=== PATIENT | female | born 1990 | race Caucasian/White ===

== ENCOUNTER 2017-11-30 21:54 | Observation (INO) ==
[2017-11-30 22:22] LABS: Bilirubin,Urine Negative (Negative); Blood,Urine Negative (Negative); Clarity,Urine Clear (Clear); Color,Urine Yellow (Yellow); Glucose,Urine (UA) Normal (Normal); Ketones,Urine Negative (Negative); Leukocyte Esterase,Urine Negative (Negative); Nitrite,Urine Negative (Negative); PH,Urine 6.5 pH Units (5.0-8.0); Protein,Urine Negative (Neg-Trace); Specific Gravity,Urine 1.014 (1.010-1.025); Urobilinogen,Urine Normal (Normal)
[2017-11-30 22:37] LABS: Amphetamine Screen,Urine Negative ng/mL (Cutoff=1000); Barbiturate Screen,Urine Negative ng/mL (Cutoff=200); Benzodiazepines Screen,Urine Negative ng/mL (Cutoff=200); Cannabinoid Screen,Urine Negative ng/mL (Cutoff = 50); Cocaine Screen,Urine Negative ng/mL (Cutoff= 300); Opiate Screen,Urine Negative ng/mL (Cutoff=300); Phencyclidine Screen,Urine Negative ng/mL (Cutoff=25)
[2017-11-30] MEDS ORDERED: FLUARIX QUAD 2017-18 36MOS UP/PF 0.5 ML SYRINGE IM ONE (22:55)
--- NOTE | 2017-11-30 23:29 | OB/GYN Progress Note ---
Date of Encounter: 11/30/17 Time of Encounter: 23:24 - Assessment and Plan (1) Back pain affecting in second trimester Current Visit: Yes Status: Acute Urinalysis - normal NST - reactive SSE - white discharge; sent to lab for vaginosis panel Vaginosis panel - pending Anticipate discharge home with labor precautions Discussed common discomforts of and how to relieve them. Encouraged to use maternity support belt and to seek foster care therapist. Discussed potential for physical therapy if desired. Follow up in office with routine care and PRN. (2) 26 weeks gestation of Current Visit: Yes Status: Acute Subjective - Subjective Principal diagnosis: Lower Back Pain Interval history: Ms Baez is a at 26 weeks 5 days that presents to triage with c/o pelvic pressure and lower back pain for the past several days. She states she was treated for a vaginal infection and yeast infection at the end of October. She denies leaking of fluid, vaginal bleeding, contractions, cramping, headaches, vision changes, and epigastric pain. She states she attempted to have intercourse last night, but it was too uncomfortable. She states she is working on fixing up her house and has been carrying around her 28 pound child frequently. Antepartum ROS: movement normal, other (pelvic pressure, lower back pain) , no loss of fluid, no vaginal bleeding, no contractions Objective - Vital Signs Vital Signs: Intake and Output 11/30/17 11/30/17 11/30/17 07:59 15:59 23:59 Other: Weight 94.9 kg Patient Weight 11/30/17 23:59 Weight 94.9 kg - Exam FHR: auscultation normal, category 1 (155 moderate variability) Auscultation: bilateral: normal Abdomen: Present: normal appearance, soft, gravid Uterus: Present: normal. Absent: firm, tenderness Cervical dilation: FT Cervix effacement: Thick station: unable to palpate presenting part/ high
[2017-12-01 00:31] LABS: Candida DNA Not Detected (Not Detect); Gardnerella DNA Not Detected (Not Detect); Trichomonas DNA Not Detected (Not Detect)
== END 2017-12-01 00:57 | disposition home or self-care (01) ==
LOC: 1NENULAB
PROVIDERS: ADMIT Obstetrics & Gynecology; ATTEND Obstetrics & Gynecology

== ENCOUNTER 2018-01-22 21:49 | Observation (INO) ==
[2018-01-22 22:20] LABS: Bilirubin,Urine Negative (Negative); Blood,Urine Negative (Negative); Clarity,Urine Clear (Clear); Color,Urine Yellow (Yellow); Glucose,Urine (UA) Normal (Normal); Ketones,Urine Negative (Negative); Leukocyte Esterase,Urine Small (Negative); Nitrite,Urine Negative (Negative); Protein,Urine Negative (Neg-Trace); Specific Gravity,Urine 1.021 (1.010-1.025); Urobilinogen,Urine Normal (Normal)
[2018-01-22 22:23] LABS: Bacteria,Urine Few per hpf (None-Few); Hyaline Casts,Urine None Seen per lpf (None-Few); RBC,Urine 0-3 per hpf (0-3); Squamous Epithelial Cell,Urine Many per lpf (None-Few)
[2018-01-22 22:40] LABS: Amphetamine Screen,Urine Negative ng/mL (Cutoff=1000); Barbiturate Screen,Urine Negative ng/mL (Cutoff=200); Benzodiazepines Screen,Urine Negative ng/mL (Cutoff=200); Cannabinoid Screen,Urine Negative ng/mL (Cutoff = 50); Cocaine Screen,Urine Negative ng/mL (Cutoff= 300); Opiate Screen,Urine Negative ng/mL (Cutoff=300); Phencyclidine Screen,Urine Negative ng/mL (Cutoff=25)
--- NOTE | 2018-01-23 07:02 | OB/GYN Progress Note ---
Date of Encounter: 01/22/18 Time of Encounter: 23:00 - Assessment and Plan (1) 34 weeks gestation of Status: Acute Ms Peoples c/o pain in her lower back and contractions. No history of PTL. States positive movement. She denies headaches, vision changes, epigastric pain, vaginal bleeding, and vaginal leaking of fluid. NST reactive; no contractions per monitor Urine contaminated Discharge home with PTL precautions Follow up in office as scheduled and PRN. Subjective - Subjective Antepartum ROS: new complaints (cramping), movement normal, no vaginal bleeding Objective - Labs Labs: Abnormal lab results Ur Leukocyte Esterase Small (Negative) H 01/22/18 22:09 Urine Microscopic WBC 5-15 per hpf (0-3) H 01/22/18 22:09 Ur Squamous Epith Cells Many per lpf (None-Few) H 01/22/18 22:09 Ur Culture Indicated? NO. (NO) A 01/22/18 22:09
== END 2018-01-22 23:54 | disposition home or self-care (01) ==
LOC: 1NENULAB
PROVIDERS: ADMIT Advanced Practice Midwife; ATTEND Advanced Practice Midwife

== ENCOUNTER → 2018-02-05 14:42 | Observation (INO) ==
[2018-02-05 13:26] LABS: Basophils # 0.1 K/mcL (0.0-0.2); Basophils % 0.6 %; Eosinophils # 0.1 K/mcL (0.0-0.6); Eosinophils % 1.5 %; Hematocrit 34.6 % (35.3-44.9); Hemoglobin 11.7 g/dL (11.5-15.4); Immature Granulocytes % 0.8 % (0-4); Lymphocytes # 1.8 K/mcL (0.6-4.6); Lymphocytes % 20.3 %; Mean Corpuscular HGB Conc 33.8 g/dL (31.6-35.5); Mean Corpuscular Hemoglobin 29.8 pg (28.0-33.3); Mean Platelet Volume 13.3 fL (9.4-12.4); Monocytes # 0.7 K/mcL (0.0-1.3); Monocytes % 7.7 %; Neutrophils # 6.1 K/mcL (1.6-8.9); Nucleated Red Blood Cells 0.2 /100 WBC (0); Platelet Count 162 K/mcL (140-400); Red Blood Count 3.93 M/mcL (3.82-4.97); Red Cell Distribution Width 14.1 % (11.5-14.5); Segmented Neutrophils % 69.1 %
[2018-02-05 13:48] LABS: Alanine Aminotransferase 8 Units/L (7-52); Aspartate Amino Transferase 13 Units/L (13-39); BUN/Creatinine Ratio 22 (6-26); Blood Urea Nitrogen 12 mg/dL (6-20); Lactate Dehydrogenase 178 Units/L (140-271); eGFR For African Americans > 60 (> 60); eGFR For Non-African Americans > 60 (> 60)
[2018-02-05 14:08] LABS: Amphetamine Screen,Urine Negative ng/mL (Cutoff=1000); Barbiturate Screen,Urine Negative ng/mL (Cutoff=200); Benzodiazepines Screen,Urine Negative ng/mL (Cutoff=200); Cannabinoid Screen,Urine Negative ng/mL (Cutoff = 50); Cocaine Screen,Urine Negative ng/mL (Cutoff= 300); Creatinine,Urine 56 mg/dL; Opiate Screen,Urine Negative ng/mL (Cutoff=300); Phencyclidine Screen,Urine Negative ng/mL (Cutoff=25)
--- NOTE | 2018-02-05 14:38 | OB/GYN Progress Note ---
Date of Encounter: 02/05/18 Time of Encounter: 14:35 - Assessment and Plan (1) 36 weeks gestation of Current Visit: Yes Status: Acute (2) Gestational hypertension Current Visit: Yes Status: Acute All PIH labs negative, discussed with Dr. Bean elevated diastolic blood pressure in the 90s, decision made to increase labetalol to 3 times a day. Discussed new labetalol dose with patient. Discharged home with labor, and PIH precautions. Patient verbalizes understanding of new dose and when to return to triage precautions Qualifiers: Trimester: third trimester Qualified Code(s): O13.3 - Gestational [ -induced] hypertension without significant proteinuria, third trimester Subjective - Subjective Interval history: 36+2 weeks gestation sent over from the office for PIH evaluation. Patient had elevated blood pressure in the office, and also recent complaints of headaches and seeing spots. Patient currently denies any headaches or visual changes. Reports good movement, denies contractions, RUQ pain, vaginal bleeding or leaking of fluid. Antepartum ROS: movement normal, no loss of fluid, no vaginal bleeding, no contractions Objective - Vital Signs Vital Signs: Intake and Output 02/04/18 02/05/18 02/05/18 23:59 07:59 15:59 Other: Weight 99.9 kg Patient Weight 02/05/18 23:59 Weight 99.9 kg - Exam FHR: auscultation normal FHR comments: Baseline 120 Abdomen: Present: normal appearance, soft, gravid Comments: +1 DTR - Labs Labs: Abnormal lab results Hct 34.6 % (35.3-44.9) L 02/05/18 13:10 MPV 13.3 fL (9.4-12.4) H 02/05/18 13:10 Nucleated RBCs/100 WBC 0.2 /100 WBC (0) H 02/05/18 13:10 Creatinine 0.55 mg/dL (0.60-1.20) L 02/05/18 13:10
== END | disposition home or self-care (01) ==
LOC: 1NENULAB
PROVIDERS: ADMIT Advanced Practice Midwife; ATTEND Advanced Practice Midwife

== ENCOUNTER 2018-02-11 14:25 | Inpatient (IN) ==
[2018-02-11 15:50] LABS: Basophils # 0.1 K/mcL (0.0-0.2); Basophils % 0.9 %; Eosinophils # 0.1 K/mcL (0.0-0.6); Eosinophils % 0.9 %; Hematocrit 35.7 % (35.3-44.9); Hemoglobin 11.6 g/dL (11.5-15.4); Immature Granulocytes % 0.9 % (0-4); Lymphocytes # 1.5 K/mcL (0.6-4.6); Lymphocytes % 25.9 %; Mean Corpuscular HGB Conc 32.5 g/dL (31.6-35.5); Mean Corpuscular Hemoglobin 28.6 pg (28.0-33.3); Mean Corpuscular Volume 88.1 fL (83.0-100.0); Mean Platelet Volume 13.4 fL (9.4-12.4); Monocytes # 0.6 K/mcL (0.0-1.3); Monocytes % 10.3 %; Neutrophils # 3.6 K/mcL (1.6-8.9); Platelet Count 143 K/mcL (140-400); Red Blood Count 4.05 M/mcL (3.82-4.97); Red Cell Distribution Width 14.2 % (11.5-14.5); Segmented Neutrophils % 61.1 %
[2018-02-11 15:58] LABS: Alanine Aminotransferase 6 Units/L (7-52); Aspartate Amino Transferase 15 Units/L (13-39); BUN/Creatinine Ratio 19 (6-26); Blood Urea Nitrogen 12 mg/dL (6-20); Lactate Dehydrogenase 187 Units/L (140-271); Uric Acid 6.9 mg/dL (2.3-7.6); eGFR For African Americans > 60 (> 60); eGFR For Non-African Americans > 60 (> 60)
[2018-02-11 15:59] LABS: Creatinine,Urine 33 mg/dL; Protein/Creatinine Ratio,Urine 0.15 mg/mg (0.00-0.20)
[2018-02-11] MEDS ORDERED: Metoclopramide 10 MG/2 ML VIAL IVP PRN (17:32)
[2018-02-11] MEDS ORDERED: Ondansetron 4 MG/2 ML VIAL IVP PRN (17:32)
[2018-02-11] MEDS ORDERED: Naloxone 0.4 MG/ML INJ IVP PRN (17:32)
[2018-02-11] MEDS ORDERED: *HR* Nalbuphine 10 MG/ML AMPUL IVP PRN (17:32)
[2018-02-11] MEDS ORDERED: Famotidine 20 MG/2 ML VIAL IVP PRN (17:32)
[2018-02-11] MEDS ORDERED: miSOPROStol 25 MCG TABLET PO PRN (17:35)
[2018-02-11] MEDS ORDERED: Ringers Solution, Lactated 1,000 ML IVC SCH (17:45)
[2018-02-11 17:56] LABS: Amphetamine Screen,Urine Negative ng/mL (Cutoff=1000); Barbiturate Screen,Urine Negative ng/mL (Cutoff=200); Benzodiazepines Screen,Urine Negative ng/mL (Cutoff=200); Cannabinoid Screen,Urine Negative ng/mL (Cutoff = 50); Cocaine Screen,Urine Negative ng/mL (Cutoff= 300); Opiate Screen,Urine Negative ng/mL (Cutoff=300); Phencyclidine Screen,Urine Negative ng/mL (Cutoff=25)
[2018-02-11] MEDS ORDERED: Oxytocin 20 units/ LR 1000 mL 20 UNIT/1,000 ML BAG IVC SCH (18:00)
--- NOTE | 2018-02-11 18:11 | OB/GYN History & Physical ---
Date of Encounter: 02/11/18 Time of Encounter: 17:57 Assessment and Plan (1) 37 weeks gestation of Current visit: Yes Status: Acute (2) Gestational hypertension Current visit: Yes Status: Acute Admit to labor and delivery Plan of care discussed with Dr. Bean. Admit for induction of labor due to uncontrolled gestational hypertension and patient noncompliance with medication , and grade 3 placenta on ultrasound. Oxytocin per policy Nubain/epidural as desired Labetalol 100 mg now 1 Anticipate Qualifiers: Trimester: third trimester Qualified Code(s): O13.3 - Gestational [ -induced] hypertension without significant proteinuria, third trimester History of Present Illness Chief complaint: Uncontrolled gestational hypertension HPI: Ms. Baez is a 27 year old female 37+1 weeks gestation presents to labor and delivery from the office for induction of labor for continued elevated blood pressures. course complicated with gestational hypertension. care with nurse midwives. Reports good movement, denies vaginal bleeding or leaking of fluid. Patient also denies headache, visual changes, right upper quadrant pain. Labs: O-, rubella nonimmune, varicella immune, GBS negative, all other serologies negative Past Med Surg Social Fam HX - Past Medical History Medical history: no medical history Psychiatric history: no psych history - Past Surgical History Surgical History: other - Social History Smoking Status: Former smoker Alcohol use: none Drug use: none - Family History Mother Adopted: No Family Member Ethnicity: Non- Living Status: Still Living Hx Family Cardiac Disorders: No Hx Family Respiratory Disorders: No Hx Family Cancer: No Hx Family GI Disorders: No Hx Family Endocrine Disorder: Yes (diabetes) Hx Family Neuromuscular Disorders: No Hx Family Neurologic Disorders: No Hx Family HEENT Disorders: No Hx Family Autoimmune Disorders: No Obstetrical History - Pregnancies : 2 Para: 1 Term: 1 : 0 Ab's: 0 Livin Medications and Allergies Pnv Cmb#21/Iron/Folic Acid [ Complete Caplet] 1 tab PO DAILY 11/30/17 [ History] Labetalol [Trandate] 100 mg PO TID 02/11/18 [History] 3 Allergy/AdvReac Type Severity Reaction Status Date / Time Amoxicillin Allergy UNSURE Verified 02/11/18 14:59 Exam - Constitutional Constitutional: well developed, well nourished, no acute distress, average body habitus - Neck Neck exam: full ROM - Lungs Respiratory exam: CTAB - Cardiovascular Cardiovascular exam: RRR - Abdomen Abdomen: Present: bowel sounds normal, gravid, non tender - Extremities Extremities exam: normal capillary refill, normal inspection Deep Tendon Reflex Grade: 2+ Normal - Vagina Vagina: Present: normal moisture - Cervix Dilation: 4 Effacement: 80 Station: -2 Results Result Diagrams: 02/11/18 15:10 02/11/18 15:10 Abnormal lab results MPV 13.4 fL (9.4-12.4) H 02/11/18 15:10 ALT 6 Units/L (7-52) L 02/11/18 15:10 All other labs normal. - VTE Reasons for not Prescribing Prophylaxis: Treatment not Indicated - Low risk for VTE
--- NOTE | 2018-02-12 00:32 | OB/GYN Procedure Note ---
Delivery - Delivery Date: 02/12/18 Provider: Renetta Reddy Intrapartum events: none Delivery induction: AROM, oxytocin Delivery monitor: external FHT, external uterine Anesthesia: local Quantitated Blood Loss: 250 - Infant (s) A Infant Delivery Date: 02/11/18 Infant Delivery Time: 23:07 Presentation: vertex Position: OA Route of delivery: Gender: Male Viability: Viable Pounds: 6 Ounces: 11 Weight Gram: 3055 kg at 1 minute: 8 at 5 mins: 9 Shoulder Dystocia: not encountered Specimens collected: cord blood Placenta: spontaneous Cord: nuchal cord, 3 umbilical vessels, delivered through nuchal - Repair Episiotomy: none Laceration Description: Perineal - 2nd Degree, Labial - Complications Delivery complications: none Delivery comments: Induction of labor with Pitocin for uncontrolled gestational hypertension and grade 3 placenta. Patient progressed to complete. Maternal bearing down efforts to of liveborn male while on hands and knees. Vertex delivered OA, nuchal cord identified, infant somersaulted through nuchal cord as shoulders and body easily followed. Vigorous infant passed maternal legs and pulled to maternal abdomen by mother. Then assisted patient to flip over onto her back with holding . Apgars 8/9. Placenta delivered spontaneously (Ruiz) and complete upon inspection, severe calcification and large calcified nodules noted to placenta. Pitocin started per policy, fundus massaged until firm. Second degree perineal laceration repaired under local anesthesia with 3-0 Monocryl, right labial laceration repaired with 3-0 Monocryl, left labial laceration with small hematoma noted, hemostatic and left unrepaired. EBL 250. Mother and infant left bonding skin to skin - Disposition Mom disposition: stable in LDR [place] disposition: stable in LDR
[2018-02-12] MEDS ORDERED: Rho Immune Globulin 1,500 UNIT SYRINGE IM PRN (02:03)
[2018-02-12] MEDS ORDERED: Benzocaine/Menthol 56 GM AEROSOL SPRAY TP PRN (02:03)
[2018-02-12] MEDS ORDERED: Oxytocin 20 units/ LR 1000 mL 20 UNIT/1,000 ML BAG IVC SCH (02:03)
[2018-02-12] MEDS ORDERED: Lanolin 7 G OINT...G. TP PRN (02:03)
[2018-02-12] MEDS ORDERED: Acetaminophen 325 MG TABLET PO PRN (02:03)
[2018-02-12] MEDS ORDERED: Measles/Mumps/Rubella Vacc 0.5 ML VIAL SQ PRN (02:03)
[2018-02-12 04:36] LABS: Basophils % 0.3 %; Eosinophils % 0.1 %; Hematocrit 34.5 % (35.3-44.9); Hemoglobin 11.3 g/dL (11.5-15.4); Immature Granulocytes % 0.5 % (0-4); Lymphocytes # 1.4 K/mcL (0.6-4.6); Lymphocytes % 11.6 %; Mean Corpuscular HGB Conc 32.8 g/dL (31.6-35.5); Mean Corpuscular Hemoglobin 28.5 pg (28.0-33.3); Mean Corpuscular Volume 86.9 fL (83.0-100.0); Mean Platelet Volume 13.4 fL (9.4-12.4); Monocytes # 0.8 K/mcL (0.0-1.3); Monocytes % 6.2 %; Neutrophils # 9.8 K/mcL (1.6-8.9); Platelet Count 143 K/mcL (140-400); Red Blood Count 3.97 M/mcL (3.82-4.97); Red Cell Distribution Width 14.2 % (11.5-14.5); Segmented Neutrophils % 81.3 %
--- NOTE | 2018-02-12 08:44 | OB/GYN Progress Note ---
Date of Encounter: 02/12/18 Time of Encounter: 08:41 - Assessment and Plan (1) Gestational hypertension Current Visit: Yes Status: Acute Continue labetalol as prescribed Qualifiers: Trimester: third trimester Qualified Code(s): O13.3 - Gestational [ -induced] hypertension without significant proteinuria, third trimester (2) Vaginal delivery Current Visit: No Status: Acute Continue care possible discharge home tomorrow Subjective - Subjective Principal diagnosis: day 1 Interval history: Patient doing well. Meeting day one milestones. Bottle feeding male infant. Patient denies any pain at this time. Patient reports: appetite normal, voiding normally, pain well controlled, ambulating normally : doing well, bottle feeding Objective - Latest Vital Signs Latest vital signs: Vital Signs Temp Pulse Resp BP Pulse Ox 02/12/18 07:35 97.9 F 74 16 148/88 98 02/12/18 03:55 98.3 F 76 14 142/92 98 02/12/18 03:00 98 F 75 14 128/76 97 02/12/18 01:50 98.1 F 86 14 164/91 98 Intake and Output 02/11/18 02/12/18 02/12/18 23:59 07:59 15:59 Intake Total 700 / 700 Output Total 650 / 650 Balance -650 / -650 700 / 700 Intake: Oral 700 / 700 Output: Urine 650 / 650 Other: Weight 96.5 kg Patient Weight 02/12/18 23:59 Weight 96.5 kg - Exam Lungs: bilateral: normal Chest: Normal S1, Normal S2 Extremities: Present: normal Abdomen: Present: normal appearance, soft, gravid Uterus: Present: normal, firm Uterus Position: At Umbilicus, Midline - Labs Labs: Laboratory Results - last 24 hr 02/11/18 02/11/18 02/11/18 15:10 15:10 15:10 WBC 5.8 RBC 4.05 Hgb 11.6 Hct 35.7 MCV 88.1 MCH 28.6 MCHC 32.5 RDW 14.2 Plt Count 143 MPV 13.4 H Immature Gran % 0.9 Seg Neutrophils % 61.1 Lymphocytes % 25.9 Monocytes % 10.3 Eosinophils % 0.9 Basophils % 0.9 Neutrophils # 3.6 Lymphocytes # 1.5 Monocytes # 0.6 Eosinophils # 0.1 Basophils # 0.1 BUN 12 Creatinine 0.64 Est GFR ( Amer) > 60 Est GFR (Non-Af Amer) > 60 BUN/Creatinine Ratio 19 Uric Acid 6.9 AST 15 ALT 6 L Lactate Dehydrogenase 187 Urine Creatinine 33 Protein/Creatinin Ratio 0.15 Urine Total Protein 5 Urine Opiates Screen Negative Ur Barbiturates Screen Negative Ur Phencyclidine Scrn Negative Ur Amphetamines Screen Negative U Benzodiazepines Scrn Negative Urine Cocaine Screen Negative U Marijuana (THC) Screen Negative 02/12/18 04:19 WBC 12.1 H D RBC 3.97 Hgb 11.3 L Hct 34.5 L MCV 86.9 MCH 28.5 MCHC 32.8 RDW 14.2 Plt Count 143 MPV 13.4 H Immature Gran % 0.5 Seg Neutrophils % 81.3 Lymphocytes % 11.6 Monocytes % 6.2 Eosinophils % 0.1 Basophils % 0.3 Neutrophils # 9.8 H Lymphocytes # 1.4 Monocytes # 0.8 Eosinophils # 0.0 Basophils # 0.0 BUN Creatinine Est GFR ( Amer) Est GFR (Non-Af Amer) BUN/Creatinine Ratio Uric Acid AST ALT Lactate Dehydrogenase Urine Creatinine Protein/Creatinin Ratio Urine Total Protein Urine Opiates Screen Ur Barbiturates Screen Ur Phencyclidine Scrn Ur Amphetamines Screen U Benzodiazepines Scrn Urine Cocaine Screen U Marijuana (THC) Screen
[2018-02-12] MEDS: Ibuprofen 600 MG TABLET PO PRN ×2 (09:30→19:33)
[2018-02-12] MEDS: Prenatal Vit/FA 1 EACH TABLET PO SCH (09:30)
[2018-02-13 08:29] VITALS: BP 128/77
[2018-02-13] MEDS: Prenatal Vit/FA 1 EACH TABLET PO SCH (09:13)
--- NOTE | 2018-02-13 10:43 | Discharge Summary ---
Date of Encounter: 02/13/18 Time of Encounter: 10:39 - Discharge Diagnosis (1) hypertension Priority: Secondary Status: Acute Comments: Continue labetalol 100mg BID through visit Return in 1 week for nurse visit BP check (2) Vaginal delivery Priority: Primary Status: Acute Comments: Feeling well-pain well controlled with by mouth pain meds Tolerating regular diet Voiding independently Passing flatus, but no BM yet Lochia light Bottlefeeding Ambulating independently Discharge home today - Discharge Medications Prescriptions: Ibuprofen [Motrin] 600 mg PO Q6HR PRN #30 tablet PRN Reason: Cramping Docusate [Colace] 100 mg PO BID #60 capsule Labetalol [Trandate] 100 mg PO BID #60 tablet Home Medications: Pnv Cmb#21/Iron/Folic Acid [ Complete Caplet] 1 tab PO DAILY 11/30/17 [ History] Acetaminophen [Tylenol] 650 mg PO Q6HR PRN tablet 02/13/18 [Rx] Benzocaine/Menthol Ambia [Dermoplast Ambia] 1 appl TP QID PRN aerosol 02/13/18 [Rx] Docusate [Colace] 100 mg PO BID #60 capsule 02/13/18 [Rx] Ibuprofen [Motrin] 600 mg PO Q6HR PRN #30 tablet 02/13/18 [Rx] Labetalol [Trandate] 100 mg PO BID #60 tablet 02/13/18 [Rx] Lanolin [Lansinoh] 1 appl TP QID PRN oint...g. 02/13/18 [Rx] Allergies/Adverse Reactions: 3 Allergy/AdvReac Type Severity Reaction Status Date / Time Amoxicillin Allergy UNSURE Verified 02/11/18 14:59 Data Procedures and tests throughout hospitalization: Laboratory Tests 02/11/18 02/11/18 02/11/18 15:10 15:10 15:10 WBC 5.8 RBC 4.05 Hgb 11.6 Hct 35.7 MCV 88.1 MCH 28.6 MCHC 32.5 RDW 14.2 Plt Count 143 MPV 13.4 H Immature Gran % 0.9 Seg Neutrophils % 61.1 Lymphocytes % 25.9 Monocytes % 10.3 Eosinophils % 0.9 Basophils % 0.9 Neutrophils # 3.6 Lymphocytes # 1.5 Monocytes # 0.6 Eosinophils # 0.1 Basophils # 0.1 BUN 12 Creatinine 0.64 Est GFR ( Amer) > 60 Est GFR (Non-Af Amer) > 60 BUN/Creatinine Ratio 19 Uric Acid 6.9 AST 15 ALT 6 L Lactate Dehydrogenase 187 Urine Creatinine 33 Protein/Creatinin Ratio 0.15 Urine Total Protein 5 Urine Opiates Screen Negative Ur Barbiturates Screen Negative Ur Phencyclidine Scrn Negative Ur Amphetamines Screen Negative U Benzodiazepines Scrn Negative Urine Cocaine Screen Negative U Marijuana (THC) Screen Negative Baby's Blood Type Mother's Blood Type Rhogam Indicated 02/12/18 02/12/18 00:05 04:19 WBC 12.1 H D RBC 3.97 Hgb 11.3 L Hct 34.5 L MCV 86.9 MCH 28.5 MCHC 32.8 RDW 14.2 Plt Count 143 MPV 13.4 H Immature Gran % 0.5 Seg Neutrophils % 81.3 Lymphocytes % 11.6 Monocytes % 6.2 Eosinophils % 0.1 Basophils % 0.3 Neutrophils # 9.8 H Lymphocytes # 1.4 Monocytes # 0.8 Eosinophils # 0.0 Basophils # 0.0 BUN Creatinine Est GFR ( Amer) Est GFR (Non-Af Amer) BUN/Creatinine Ratio Uric Acid AST ALT Lactate Dehydrogenase Urine Creatinine Protein/Creatinin Ratio Urine Total Protein Urine Opiates Screen Ur Barbiturates Screen Ur Phencyclidine Scrn Ur Amphetamines Screen U Benzodiazepines Scrn Urine Cocaine Screen U Marijuana (THC) Screen Baby's Blood Type O RH NEGATIVE Mother's Blood Type O RH NEGATIVE Rhogam Indicated NO Labs on day of discharge: Labs from last 24 hours 02/12/18 00:05 Rhogam Indicated NO Date of admission: 02/11/18 17:32 Primary care physician: PCP NONE Consults: 02/12/18 02:03 Consult to Corporate Consultant [CONS] Routine Comment: Vaginal delivery, consult needed Discharging clinician: Delma Watkins Anticipated date of discharge: 02/13/18 - Patient Status Disposition: Home, Self-Care Condition: Good Functional capacity at discharge: independent ambulation Overall status at discharge: patient is progressing back to baseline - Discharge Instructions Instructions: Vaginal Delivery (DC) Follow Up With: NONE,PCP [Primary Care Provider] - Delma Saavedra CNM [Advanced Practice Nurse] - 03/22/18 1:15 pm - Diet and Activity Activity: increase activity as tolerated Diet: regular diet Hospital Course Reason for admission: induction of labor, IUP at term Delivery: Episiotomy: none Laceration: 2nd degree Other procedures: none complications: none Discharge diagnosis: IUP at term delivered [place] baby: male Time Attestation: Total time spent providing and/or coordinating discharge services: Time Spent: Less than 30 minutes Exam - Constitutional Vitals: Temp Pulse Resp BP Pulse Ox 98.1 F 74 12 128/77 98 02/13/18 08:00 02/13/18 08:00 02/13/18 08:00 02/13/18 08:00 02/13/18 08:00 General appearance IM: A&O X 3 - Respiratory Respiratory exam: Present: CTAB - Cardiovascular Cardiovascular exam IM: Present: RRR, +S1, +S2 - GI/Abdominal GI/Abdominal exam IM: normal bowel sounds, no peritoneal signs - Rectal Rectal exam: deferred - Uterine Tone: Firm Uterus Position: 1 Finger Below Umbilicus, Midline - Extremities Exam Extremities exam IM: Present: normal capillary refill, normal inspection, radial pulses palpable and symmetrical - Neurological Exam Neurological exam: alert, oriented X3 - Psychiatric Additional comments: Patient denies any history of anxiety or depression. Signs and symptoms of depression discussed with patient and she verbalizes understanding of when to call for help.
== END 2018-02-13 12:40 | disposition home or self-care (01) | DRG 560 ==
LOC: 1NENULAB → INTOOBSV 14:25 → OBSVTOIN 14:25 → 1NENUOBS 02-12 01:44
PROVIDERS: ADMIT Obstetrics & Gynecology; ATTEND Obstetrics & Gynecology